=== PATIENT | female | born 1995 | race Caucasian/White ===

== ENCOUNTER 2023-05-11 00:02 | Emergency (ER) | payer OTHER ==
[~2023-05-11] VITALS: Ht 160 cm; Wt 63.5 kg
[2023-05-11 00:34] VITALS: BP 126/95; TEMP 97.9; O2SAT 97
[2023-05-11 01:56] LABS: BASOPHILS # (AUTO) 0.1 K/uL (0.0-0.2); BASOPHILS % (AUTO) 0.8 % (0.0-2.0); EOSINOPHILS # (AUTO) 0.1 K/uL (0.0-0.7); EOSINOPHILS % (AUTO) 0.6 % (0.0-6.0); HEMATOCRIT 46 % (33-45); HEMOGLOBIN 15.5 g/dL (11.5-14.8); LYMPHOCYTES # (AUTO) 2.9 K/uL (0.8-4.8); LYMPHOCYTES % (AUTO) 32.2 % (20.0-44.0); MEAN CORPUSCULAR HEMOGLOBIN 30 PG (26.0-33.0); MEAN CORPUSCULAR HGB CONC 34 g/dl (31.0-36.0); MEAN CORPUSCULAR VOLUME 89 fL (82-100); MONOCYTES # (AUTO) 0.6 K/uL (0.1-1.30); MONOCYTES % (AUTO) 6.9 % (2.0-12.0); NEUTROPHILS # (AUTO) 5.4 K/uL (1.8-8.9); NEUTROPHILS % (AUTO) 59.5 % (43.0-81.0); PLATELET COUNT (AUTO) 372 K/uL (150-450); RED BLOOD CELL COUNT(AUTO) 5.18 MIL/uL (4.0-5.2); RED CELL DISTRIBUTION WIDTH 13.3 % (11.5-15.0)
[2023-05-11 02:04] LABS: CALCIUM, SERUM 9.4 mg/dL (8.5-10.1); CARBON DIOXIDE 27 mmol/L (21-32); CHLORIDE 104 mmol/L (98-107); CREATININE 0.6 mg/dL (0.6-1.3); GLUCOSE 115 mg/dL (74-106); SODIUM SERUM 140 mmol/L (136-145); UREA NITROGEN, BLOOD 6 mg/dL (7-18)
[2023-05-11 02:09] LABS: APPEARANCE,URINE CLEAR (CLEAR); BILIRUBIN,URINE NEGATIVE (NEGATIVE); BLOOD, URINE NEGATIVE Ery/uL (NEGATIVE); COLOR,URINE YELLOW (YELLOW); KETONES,URINE NEGATIVE (NEGATIVE); LEUKOCYTE ESTERASE ,URINE 1+ (NEGATIVE); NITRITE, URINE NEGATIVE (NEGATIVE); PROTEIN,URINE NEGATIVE (NEGATIVE); UGLUCOSE NEGATIVE (NEGATIVE); UROBILINOGEN,URINE 0.2 EU/dL (0.2)
[2023-05-11 02:11] LABS: PREGNANCY TEST URINE QUAL NEGATIVE (NEGATIVE)
[2023-05-11 02:18] LABS: ALANINE AMINOTRANSFERASE 19 U/L (12-78); ALBUMIN 3.9 g/dL (3.4-5.0); ALKALINE PHOSPHATASE 78 U/L (46-116); ASPARTATE AMINOTRANSFERASE 24 U/L (15-37); BILIRUBIN,TOTAL 0.4 mg/dL (0.2-1.0)
[2023-05-11 02:22] LABS: ALCOHOL, BLOOD < 3 mg/dL (0-10)
[2023-05-11 02:32] LABS: AMPHETAMINE, URINE NEGATIVE (NEGATIVE); BARBITURATE, URINE NEGATIVE (NEGATIVE); BENZODIAZEPINE, URINE NEGATIVE (NEGATIVE); CANNABINOID, URINE NEGATIVE (NEGATIVE); COCCAINE, URINE NEGATIVE (NEGATIVE); OPIATE, URINE NEGATIVE (NEGATIVE); PHENCYCLIDINE SCREEN,URINE NEGATIVE (NEGATIVE)
[2023-05-11 02:56] LABS: ADD URINE CULTURE YES; BACTERIA,URINE 2+ /HPF (None Seen); RBC,URINE 0-2 /HPF (0-2)
[2023-05-11] MEDS ORDERED: ONDANSETRON 4 MG TAB.RAPDIS ONE (04:54)
[2023-05-11] MEDS: ONDANSETRON 4 MG TAB.RAPDIS PO ONE (04:57)
== END 2023-05-11 04:58 | disposition home or self-care (01) ==
LOC: ER 00:23
DX: R20.2 Paresthesia of skin (principal); E03.9 Hypothyroidism, unspecified
CPT/HCPCS: 99283; 85025; 87086; 84703; 81001; 36415; 80053; 80320; 80307; Q0162; G0480